=== PATIENT | female | born 1955 | race African-American/Black ===

== ENCOUNTER 2020-07-13 13:42 | Emergency (ER) | payer MEDICARE, MEDICAID ==
[~2020-07-13] VITALS: Ht 170.2 cm; Wt 83.9 kg
[2020-07-13 15:00] VITALS: BP 117/54
[2020-07-13] MEDS ORDERED: CARISOPRODOL 350 MG TAB PO ONE (15:45)
== END 2020-07-13 17:06 | disposition home or self-care (01) ==
LOC: ER 13:42
DX: S16.1XXA Strain of muscle, fascia and tendon at neck level, initial encounter (principal); I10 Essential (primary) hypertension; X58.XXXA Exposure to other specified factors, initial encounter; Y93.89 Activity, other specified; Y92.89 Other specified places as the place of occurrence of the external cause; Y99.8 Other external cause status
CPT/HCPCS: 72125

== ENCOUNTER 2022-10-01 07:39 | Emergency (ER) | payer MEDICARE, MEDICAID ==
[~2022-10-01] VITALS: Ht 172.7 cm; Wt 92.0 kg
[2022-10-01] MEDS ORDERED: KETOROLAC TROMETH 30 MG/ML 1ML VIAL IV ONE (08:30)
[2022-10-01] MEDS ORDERED: CYCLOBENZAPRINE HCL 10 MG TAB PO ONE (08:30)
[2022-10-01] MEDS ORDERED: HYDROmorphone HCL 2 MG/ML VL/or syr IV ONE (11:45)
[2022-10-01] MEDS ORDERED: diazePAM 5 MG TAB PO ONE (11:45)
[2022-10-01] MEDS ORDERED: CYCL-839 PO (11:56)
[2022-10-01 13:35] VITALS: BP 122/59
== END 2022-10-01 13:36 | disposition home or self-care (01) ==
LOC: EDBD 07:39 → ER 07:39
DX: M54.42 Lumbago with sciatica, left side (principal); I10 Essential (primary) hypertension; I48.91 Unspecified atrial fibrillation; E78.5 Hyperlipidemia, unspecified; Z88.6 Allergy status to analgesic agent; Z88.5 Allergy status to narcotic agent
CPT/HCPCS: 93005; 96374; 96375; 99284; J1170; J1885